=== PATIENT | male | born 1965 | race Caucasian/White ===

== ENCOUNTER 2022-01-08 11:02 | Outpatient (CLI) | payer MEDICARE, MEDICAID, SELFPAY ==
--- NOTE | 2022-01-08 10:30 | DI.RAD_ITS ---
Exam(s) XR HIP RT COMPLETE AP PELVIS EXAM: XR HIP RT COMPLETE AP PELVIS CLINICAL HISTORY: eval R hip OA. TECHNIQUE: 2D digital imaging was performed of the right hip. Two images were obtained. AP pelvis a nd lateral right hip views were obtained. COMPARISON: No previous for comparison. FINDINGS: BONES: No acute fracture is present. No bony destructive lesion is seen. JOINTS: There are marked degenerative changes of the right hip with joint space narrowing subchondral cyst/sclerosis and periarticular spurring. The left hip is well maintained. SOFT TISSUE: Normal. IMPRESSION: Marked osteoarthritis of the right hip. DATA REPOSITORY: RADIATION DOSE DELIVERED:
== END 2022-01-08 11:03 | disposition home or self-care (01) ==
LOC: DIORS 11:03
PROVIDERS: PCP Family Medicine; Referring Provider Family Medicine; Visit Provider Student in an Organized Health Care Education/Training Program
DX: M16.11 Unilateral primary osteoarthritis, right hip (principal); M23.41 Loose body in knee, right knee; L97.518 Non-pressure chronic ulcer of other part of right foot with other specified severity; E66.01 Morbid (severe) obesity due to excess calories; I10 Essential (primary) hypertension; F17.210 Nicotine dependence, cigarettes, uncomplicated
CPT/HCPCS: 99203; 73502

== ENCOUNTER 2022-02-15 15:56 | Outpatient (CLI) | payer MEDICARE, MEDICAID, SELFPAY ==
--- NOTE | 2022-02-15 15:30 | DI.RAD_ITS ---
Exam(s) XR PELVIS AP EXAM: XR PELVIS AP CLINICAL HISTORY: planning ofr JC. TECHNIQUE: 2D digital imaging was performed.Two images were obtained. COMPARISON: No exams were available for comparison FINDINGS: BONES: No acute fracture is present. No bony destructive lesion is seen. JOINTS: No dislocation present. Marked degenerative changes are seen in the right hip with loss of th e superior joint space, subchondral sclerosis, periarticular spurring and osteophytes. The left hip is well maintained. SOFT TISSUE: Normal. IMPRESSION: Marked degenerative changes of the right hip. DATA REPOSITORY: RADIATION DOSE DELIVERED:
== END 2022-02-15 15:57 | disposition home or self-care (01) ==
LOC: DIORS 15:57
PROVIDERS: PCP Family Medicine; Referring Provider Family Medicine; Visit Provider Student in an Organized Health Care Education/Training Program
DX: M16.11 Unilateral primary osteoarthritis, right hip (principal); M17.11 Unilateral primary osteoarthritis, right knee; E66.9 Obesity, unspecified; F17.210 Nicotine dependence, cigarettes, uncomplicated
CPT/HCPCS: 20610; 72170; J1040

== ENCOUNTER 2022-03-23 02:50 | Outpatient (CLI) | payer MEDICARE, MEDICAID, SELFPAY ==
[2022-03-23 14:04] LABS: HCT 38.1 % (40.0-50.0); HGB 13.2 g/dL (13.5-17.5); MCH 31.1 pg (27.0-33.0); MCHC 34.6 % (32.0-36.0); MCV 90 fL (80-95); MPV 9.5 fL (8.0-11.0); Platelet Count 273 10^3/uL (130-400); RBC 4.24 10^6/uL (4.36-5.78); WBC 8.65 10^3/uL (4.4-10.8)
[2022-03-23 14:40] LABS: Anion Gap 7.7 mmol/L (3-11); BUN 13 mg/dL (7-18); CO2 28.3 mmol/L (21.0-32.0); CREATININE 0.8 mg/dL (0.70-1.30); Calcium 9.3 mg/dL (8.5-10.1); Chloride 99 mmol/L (98-107); Estimated GFR 103.87 (mL/min/1.73m2); Glucose 110 mg/dL (74-106); Potassium 4.1 mmol/L (3.5-5.1); Sodium 135 mmol/L (136-145)
== END 2022-03-23 02:51 | disposition home or self-care (01) ==
LOC: LBO 02:50
PROVIDERS: PCP Family Medicine; Visit Provider Student in an Organized Health Care Education/Training Program
DX: M25.551 Pain in right hip (principal); M16.11 Unilateral primary osteoarthritis, right hip; Z01.818 Encounter for other preprocedural examination; Z01.812 Encounter for preprocedural laboratory examination
CPT/HCPCS: 36415; 80048; 85027; 99214

== ENCOUNTER 2022-03-30 12:15 | Inpatient (IN) | payer MEDICARE, MEDICAID, SELFPAY ==
[2022-03-30] VITALS (12 sets, daily range): BP systolic 104–138; BP diastolic 68–95; PULSE 66–85; RESP 12–20; TEMP 36.3–36.9; O2SAT 95–97; BMI 50.3
[2022-03-30 12:39] LABS: Source Nasal/Nares
--- NOTE | 2022-03-30 12:47 | W.ANESPRE ---
General Info Date of Service Date Performed: 03/30/22 Height: 5 ft 6 in Weight: 141.3 kg Body Mass Index (BMI): 50.3 Surgical Procedure: Operation Date: 03/30/22 15:50 Proposed Procedure Side Surgeon p Hip Total Hip Anterior ACTIS Right Naseem Caba MD Meds Allergies and Home Medications Allergies Allergy/AdvReac Type Severity Reaction Status Date / Time acetaminophen [From Vicodin] Allergy Intermediate Verified 03/30/22 13:04 hydrocodone [From Vicodin] Allergy Intermediate Verified 03/30/22 13:04 naproxen AdvReac Verified 03/30/22 13:04 Home Medication Medication Instructions Recorded acetaminophen 500 mg tablet 500 mg PO Q6H PRN 11/17/21 diclofenac sodium 1 % topical gel 4 g topical QID 11/17/21 docusate calcium 240 mg capsule 240 mg PO DAILY 11/17/21 lisinopril 10 mg tablet 10 mg PO DAILY 03/23/22 meloxicam 15 mg tablet 15 mg PO DAILY 03/23/22 Current Visit Medications: Current Medications Generic Name Dose Route Start Last Admin Trade Name Freq PRN Reason Stop Dose Admin Acetaminophen 1,000 mg 03/30/22 06:00 Acetaminophen 500 Mg Tab PO 03/30/22 16:00 PREOP ROHITH Celecoxib 400 mg 03/30/22 06:00 Celecoxib 200 Mg Cap PO 03/30/22 16:00 PREOP ROHITH Tranexamic Acid 1,000 mg/ 60 mls @ 360 mls/hr 03/30/22 06:00 Sodium Chloride IV 03/30/22 16:00 PREOP ROHITH Ringer's Solution 1,000 mls @ 80 mls/hr 03/30/22 06:00 IV 03/30/22 23:59 INFUSION ROHITH Cefazolin Sodium 3,000 mg/ 100 mls @ 200 mls/hr 03/30/22 06:00 Sodium Chloride IVPB 03/30/22 16:00 PREOP [facility] IV Miscellaneous Supplies 1 each 03/30/22 06:00 Iv Access IV 03/30/22 23:59 DIRECTED ROHITH Sodium Chloride 0 ml 03/30/22 06:00 Normal Saline Flush 10 Ml Syr IV 03/30/22 23:59 PRN PRN Sodium Chloride 0 ml 03/30/22 06:00 Normal Saline 10 Ml Vial IJ 03/30/22 23:59 DIRECTED PRN Sterile Water 0 ml 03/30/22 06:00 Water,Injection,Sterile 10 Ml Vial IJ 03/30/22 23:59 DIRECTED PRN PFSH Active Problems Active Problems: Problem Status Onset Code Alcohol abuse F10.10 Osteoarthritis of right knee M17.11 Osteoarthritis of right hip M16.11 Hyperlipidemia E78.5 Opioid use disorder F11.90 Erectile dysfunction N52.9 Hypertension I10 Major depressive disorder F32.9 Housing instability, housed, homelessness in past 12 months Z59.812 Non-healing ulcer of right foot L97.519 Loose body in knee, right knee M23.41 Medical History Medical History Cellulitis 08/2019, 12/2019 Chronic pain COPD (chronic obstructive pulmonary disease) COVID DM (diabetes mellitus) Dx 01/21 Lumbosacral radiculitis Morbid obesity AIYANA (obstructive sleep apnea) 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 Surgical History Surgical History (Updated 03/30/22 @ 14:07 by Cinthya Haley) History of partial amputation of toe of right foot 03/17/20 History of surgery on lower extremity left ankle w/screws per patient Tobacco Smoking/Tobacco Use Status: Current-Occasional Tobacco Type: cigarettes Smokeless tobacco user: chewing tobacco Alcohol Alcohol Intake: current Alcohol intake frequency: 0-2 drinks per day Substance Use Substance use: Occasionally Substance use type: marijuana Vital Signs and Lab Results Lab Results Blood Type / Crossmatch: No Data to Display Complete Blood Count: White Blood Count 8.65 10^3/uL (4.4-10.8) 03/23/22 13:50 Red Blood Count 4.24 10^6/uL (4.36-5.78) L 03/23/22 13:50 Hemoglobin 13.2 g/dL (13.5-17.5) L 03/23/22 13:50 Hematocrit 38.1 % (40.0-50.0) L 03/23/22 13:50 Platelet Count 273 10^3/uL (130-400) 03/23/22 13:50 Complete Metabolic Panel: Sodium 135 mmol/L (136-145) L 03/23/22 13:50 Potassium 4.1 mmol/L (3.5-5.1) 03/23/22 13:50 Chloride 99 mmol/L (98-107) 03/23/22 13:50 Carbon Dioxide 28.3 mmol/L (21.0-32.0) 03/23/22 13:50 BUN 13 mg/dL (7-18) 03/23/22 13:50 Creatinine 0.8 mg/dL (0.70-1.30) 03/23/22 13:50 Est GFR (CKD-EPI 2020) 103.87 (mL/min/1.73m2) 03/23/22 13:50 Calcium 9.3 mg/dL (8.5-10.1) 03/23/22 13:50 Glucose 110 mg/dL (74-106) H 03/23/22 13:50 Liver Function Panel: No Data to Display Coagulation Panel: No Data to Display Cardiac Panel: No Data to Display Arterial Blood Gas: No Data to Display Venous Blood Gas: No Data to Display Pancreas Panel: No Data to Display Thyroid Panel: No Data to Display Infectious Disease: Coronavirus (COVID-19)(PCR) Negative (Negative) 03/30/22 12:30 Coronavirus 2019 Source Nasal/Nares 03/30/22 12:30 Blood Cultures: No Data to Display Toxicology Panel: No Data to Display Anesthesia Assessment and Plan Anesthesia History Personal History: No History of Anesthesia Complications Family History: Family History Unknown Exercise Tolerance Exercise Tolerance: Metabolic Equivalents>4 Cardiac & Pulmonary Exam Cardiac Exam: Normal S1/S2 Heart Sounds Pulmonary Exam: Clear Bilateral Breath Sounds Implantable Cardiac Device Does patient have a Pacemaker or an ICD?: No Airway Exam Known Difficult Airway: No Mallampati Class: 3 Mouth Opening: Normal (> 3cm) Thyromental Distance: Greater than 3 cm Facial Hair: Full Driscoll Neck Range of Motion: Full ROM Neck Circumference: Thick Teeth Condition: Generalized Poor Dentition ASA Classification ASA Score: ASA 3 Emergency Case?: No NPO Status NPO Status: NPO Clears >2 hours, Solids >8 hours Anesthesia Plan Resuscitation Status: Full Code Anesthesia Technique: Spinal Anesthesia Airway Planned: Natural Airway Monitors Used: Standard Monitors
[2022-03-30] MEDS: Lactated Ringers 1,000 ML 80 ML IV ×2 (13:10→18:49)
[2022-03-30 13:11] LABS: COVID-19 PCR Negative (Negative)
[2022-03-30] MEDS: Celecoxib 200 MG CAP 400 MG PO (13:25)
[2022-03-30] MEDS: Acetaminophen 500 MG TAB 1000 MG PO ×2 (13:25→20:26)
--- NOTE | 2022-03-30 13:30 | DI.RAD_ITS ---
Exam(s) XR HIP RT IN OR EXAM: XR HIP RT IN OR CLINICAL HISTORY: right total hip. TECHNIQUE: 2D digital imaging was performed. COMPARISON: No exams were available for comparison FINDINGS: Fluoroscopy provided during right hip arthroplasty. See procedure report for details. Cumulative dose 23.75mGy IMPRESSION: DATA REPOSITORY: RADIATION DOSE DELIVERED:
[2022-03-30] MEDS: ceFAZolin 3,000 MG in Normal Saline 100 ML 200 MG IVPB (14:33)
--- NOTE | 2022-03-30 18:18 | W.ANESPOSTOP ---
Postoperative Evaluation Date, Time and Location Date Performed: 03/30/22 Time Performed: 17:50 Patient Location: PACU Vital Signs Most Recent Imported Vital Signs: Most Recent Vital Signs Temp Pulse Resp BP Pulse Ox 36.5 C 74 17 114/88 95 03/30/22 17:50 03/30/22 17:50 03/30/22 17:50 03/30/22 17:50 03/30/22 17:50 Pain Score Most Recent Pain Score: Most Recent Pain Score Pain Level 0 03/30/22 17:50 Assessment Mental Status: Awake (Alert & Oriented to Patient Baseline) Airway and Respiratory Function: Patent airway with normal (patient baseline) respiratory exam Cardiovascular Function: Hemodynamically Stable Hydration Status: Adequately Hydrated Nausea & Vomiting: No Nausea or Vomiting Pain: Pt. Denies Any Pain Peripheral Nerve Block: Patient did not receive a nerve block
[2022-03-30] MEDS: oxyCODONE 5 MG TAB PO ×2 (18:59→23:17)
[2022-03-30] MEDS: Celecoxib 200 MG CAP PO (20:26)
[2022-03-30] MEDS: ceFAZolin 1 GM/50 ML BAG IVPB (20:27)
[2022-03-30] MEDS: Aspirin E.C. 81 MG TABEC PO (20:27)
--- NOTE | 2022-03-30 20:56 | ROE_ITS ---
Date of service: 03/30/22 Time of Service: 17:00 Operative Note Operative Note DATE OF PROCEDURE: 03/30/22 PRE-OP DIAGNOSIS: Right Hip Avascular Necrosis POST-OP DIAGNOSIS: same PROCEDURE: Right Anterior Total Hip Arthroplasty with Intraoperative Navigation - increased difficulty given super morbid obesity SURGEON: Naseem Caba NUCLEAR PHYSICIAN: Cindi Price ANESTHESIA TYPE: Spinal Refer to Anesthesia Record ESTIMATED BLOOD LOSS: 250 PATHOLOGY: none sent TOURNIQUET TIME: 0 COMPLICATIONS: None Patient was transported to: PACU Patient's condition: stable Implants: 1. Depuy [place] Acetabular Component, 54mm 2. Depuy Acetabular Liner, [id number] 3. Depuy Actis Standard Collared Femoral Stem, Size 3 4. Depuy Altrx Ceramic Femoral Head, Size 36+5mm Indications: I have seen Rosalio in clinic for symptoms of hip osteonecrosis, confirmed with radiographic findings. Rosalio has exhausted nonoperative methods and was having significant limitations in daily function and desired better function and less pain. I discussed the technical details of a hip replacement. I explained the risks of the procedure to include, but not limited to, bleeding, infection, pain, stiffness, fracture, damage to nerves and vessels, damage to muscles and tendons, loosening, instability, leg length inequality, need for repeat procedure, blood clot and cardiopulmonary demise. Despite these risks, Rosalio elected to proceed. Findings: There was significant flattening and deformity of the femoral head with acetabular wear and a large floor osteophyte. Procedure Description: Rosalio was greeted in the preoperative holding area where the correct side was identified and marked. The consent was reviewed with the patient and signed. The history and physical was updated. All questions were answered. He was taken back to the operating room. A spinal anesthestic was then administered. The feet were wrapped with cast padding and Coban and then placed into the boot liners and then into the boots. Care was taken to protect the skin and make sure the heels were fully down and the boots were stable. The patient was then positioned onto the HANA table. Both legs were held in a neutral position. SCDs were applied. The patient was then slid down onto a peroneal post. Prophylactic antibiotics in the form of Cefazolin were administered. 1g of Tranxemic Acid was given intravenously within 30 minutes of incision. The large pannus was taped over and secured although given its size this twisted the patient to the left. The right leg was then prepped with Chloraprep and draped in a standard fashion. A second prep with Chloraprep was performed prior to placement of a shower-curtain type drape with Iodine impregnated skin protection. A timeout to confirm correct identity, side and site, procedure, allergies, anesthesia, and medical concerns was performed. An obliquely oriented incision was made starting lateral to the ASIS and running distal over the Tensor Fascia Karla (TFL) muscle belly toward the fibular head, approximately 10cm. The skin and soft tissue was dissected sharply, through Sarina?s fascia, and to the fascia of the TFL. With the fascia and superior border of the IT band identified, the fascia was incised with a new knife just above any perforators from the IT band. The TFL muscle belly was bluntly dissected away from the fascia and moved laterally. The fat between TFL and rectus was identified to ensure the dissection was not within the TFL. Blunt dissection created space between abductors and the capsule and retractor was placed over the lateral femoral neck. The fibers of the rectus femoris tendon were identified and these were freed from the anterior capsule. A second cobra retractor was placed around the medial femoral neck. The TFL was further retracted laterally to show the deep fascia. Careful dissection through this layer identified three main crossing vessels of the lateral femoral circumflex. These were cauterized in multiple locations and then cut without any noticeable bleeding. The TFL was further released bluntly from the deep fascia to expose anterior hip capsule and fat The Alfonso orthopaedic retractor was then placed beneath the TFL and against sartorius and medial soft tissues to protect and retract the soft tissues. A T-capsulotomy was then performed starting at the superior lateral acetabulum and moving distally to the intertrochanteric ridge. These capsular flaps were tagged with a No. 1 Ethibond and elevated from within. The capsular flaps were released to the shoulder of the lateral neck and to the lesser trochanter to give excellent visualization of the proximal femur. There was notable synovitis in the hip. Access into the hip was challenging given the amount of soft tissue and adipose around the hip. A neck osteotomy was performed using an oscillating saw based on preoperative templates. This cut started in the shoulder and of the lateral neck and exited medially. The saw was at all times directed medially to avoid injury to the greater trochanter. Gross traction was applied to the leg and the osteotomy opened. The femoral head was removed with a corkscrew, making sure to protect the TFL on its exit. There was deformity and flattening of the femoral head. Traction was released after head removal. This was measured on the back table to determine the starting reamer size. Portions of the rectus obscuring visualization were minimally elevated off the superior acetabulum. An anterior retractor was placed over the anterior wall between capsule and labrum and attached to the Gripper retraction system. The femur was rotated to 90 degrees and medial capsule was fully released until the lesser trochanter was palpable and visible; the femur was returned to 30 degrees. A posterior retractor was placed similarly between capsule and labrum. This provided excellent visualization. The contents of the cotyloid fossa were removed with electrocautery and the labrum was removed with a knife. There was a notable floor osteophyte. Acetabular reaming began with a 48mm reamer. This first reaming was directed anterior to posterior and medial to get down to the true floor. This was inspected and reamed until the true floor was reached. The anterior retractor was then released and entry and exit was provided by traction on the capsular flaps. I then reamed sequentially up to a 54mm reamer where good fit was obtained. The larger reamers were oriented based on anatomical reference of the anterior and lateral dominguez to ensure proper abduction and anteversion. Positioning and size was confirmed with the fluoroscopy. A 54mm Depuy [place] acetabular component was selected. The deep tissues were irrigated. The acetabular component was then impacted in a position of about 40-45 degrees of abduction and 15-20 degrees of anteversion, using the patient?s anatomy as the ultimate landmark. Fluoroscopy was used to confirm this. There was excellent electrical drafter of the acetabular component and the inserting handle was removed. The acetabular liner, Depuy [id number] polyethylene liner, was inserted and lined up with the tines of the acetabular component. There was no soft tissue interposition. The liner was then impacted into position and confirmed to be well-seated. A portion of the melanie-articular cocktail was then injected around the acetabulum into the capsule and periosteum. This cocktail consisted of 123mg of Ropivacaine, 0.25mg of Epinephrine, 0.04mg of Clonidine, and 15mg of Ketorolac, diluted to 50cc. The leg was rotated to 120 degrees. Any remaining medial capsule was released until the lesser trochanter was easily palpable. A retractor was placed medially. Getting this capsule released was very challenging due to the morbid obsity and superfluous adiposity. The lateral capsule was further released into the shoulder to allow access to the greater trochanter. A Ramon retractor was placed over the greater trochanter which allowed the trochanter to flip in front of the capsule for excellent exposure. The leg was brought down into maximal extension and 20 degrees of adduction while ensuring there was no impingement on the acetabulum. Any remnant capsule within the trochanter was released. Piriformis and obturator externis were identified and protected. There was excellent access to the proximal femur. The lateral neck remnant was removed with a rongeur. A blunt canal probe was used to identify the canal and trajectory for later broaching. A box osteotome initiated the broach course. A small curved rasp and a curved curette were used to work laterally. Broaching then began with a size 0 Actis broach. This was inserted manually around the trochanter and into the canal before mallet blows. The broach was seated to a few millimeters below the cut level based on the neck cut and the preoperative template. Sequential broaching was continued with the Chooosse pneumatic broaching device until a tight fit was obtained with good rotational control of the femur. A trial standard neck was inserted along with a +5 trial head. The leg was brought out of extension and adduction and then reduced with traction and internal rotation. The leg was stable anteriorly in a position of 30 degrees of extension and 90 degrees of external rotation. Fluoroscopy was used to ensure there was no fracture and the stem was seated well. Leg lengths were checked with an AP pelvis and pelvic reference points. [facility] navigation system was used to confirm appropriate positioning and leg length and offset. Interpreting this was challenging given the habitus. Velus indicated appropriate leg length as planned but x-rays were difficult to get clarity. Alignment jacobo was also used which appeared close although the femoral broach was sitting up. Once content with the desired offset and leg lengths, the leg was brought back into extension, external rotation and adduction. The periosteum and surrounding tissue was injected with remaining portion of the melanie-articular cocktail. The proximal femur was irrigated as well as the deep tissues. The Depuy Actis standard collared stem, size 3, was then manually inserted into the proximal femur making sure to control rotation. It was then malleted into position with light blows, giving breaks to allow bone expansion and decrease risk of fracture. The selected Depuy Altrx Ceramic Head, size 36+5mm, was then placed onto the clean and dry trunnion and secured with impaction onto the tapered fit. The leg was brought back out of extension and adduction and reduced with traction and internal rotation. Stability was confirmed with no shuck at 90 degrees of external rotation and 30 degrees of extension. No impingement through range of motion arc. Final x-ray images were obtained with fluoroscopy to confirm adequate positioning and no intraoperative fracture. COMPLICATION The deep tissues were thoroughly irrigated with Irrisept chlorheadin solution. This was allowed to sit in the wound for 3 minutes before being thoroughly irrigated out with normal saline. The capsule was then reapproximated with the previously placed Ethibond sutures. The TFL fascia was finally closed with a No. 2 Stratafix, barbed suture. Deep tissues were then reapproximated with 0 Vicryl and a running 2-0 Vicryl. The skin was closed with a running 4-0 Monocryl in a subcuticular fashion. This was reinforced with skin glue. A Mepilex silver dressing was applied. At the end of the case, all counts were correct. NAME was transferred to the hospital bed without difficulty and suffering no apparent complication. Rosalio has a good prognosis. Physical therapy will start today and without restrictions, weight-bearing as tolerated. Aspirin 81mg BID will be used for DVT prophylaxis.
[2022-03-31 03:15] VITALS: BP 120/78; PULSE 66; RESP 17; TEMP 36.7; O2SAT 97
[2022-03-31] MEDS: ceFAZolin 1 GM/50 ML BAG IVPB ×2 (03:53→12:04)
[2022-03-31 06:52] LABS: HCT 35.3 % (40.0-50.0); HGB 12.1 g/dL (13.5-17.5); MCH 31.5 pg (27.0-33.0); MCHC 34.3 % (32.0-36.0); MCV 92 fL (80-95); MPV 9.8 fL (8.0-11.0); Platelet Count 229 10^3/uL (130-400); RBC 3.84 10^6/uL (4.36-5.78); RDW 13.2 % (11.8-14.1); RDW-SD 44.1 fL; WBC 11.66 10^3/uL (4.4-10.8)
[2022-03-31 07:08] LABS: BUN 24 mg/dL (7-18); CREATININE 1.2 mg/dL (0.70-1.30); Calcium 8.3 mg/dL (8.5-10.1); Chloride 99 mmol/L (98-107); Estimated GFR 70.98 (mL/min/1.73m2); Glucose 248 mg/dL (74-106); Potassium 4.4 mmol/L (3.5-5.1); Sodium 133 mmol/L (136-145)
[2022-03-31 08:29] VITALS: BP 122/87; PULSE 90; RESP 14; TEMP 37.3; O2SAT 95
[2022-03-31] MEDS: Celecoxib 200 MG CAP PO (08:41)
[2022-03-31] MEDS: Lisinopril 10 MG TAB PO (08:41)
[2022-03-31] MEDS: Acetaminophen 500 MG TAB 1000 MG PO ×3 (08:41→21:40)
[2022-03-31] MEDS: Pantoprazole 40 MG TABCR PO (08:41)
[2022-03-31] MEDS: Aspirin E.C. 81 MG TABEC PO ×2 (08:42→21:39)
[2022-03-31] MEDS: oxyCODONE 5 MG TAB PO ×3 (08:42→21:38)
[2022-03-31] MEDS: Docusate Sodium 100 MG CAP PO (08:43)
[2022-03-31] MEDS: Normal Saline Flush 10 ML SYR IV (08:43)
--- NOTE | 2022-03-31 09:25 | PT.INIE ---
Date of service: 03/31/22 Time of Service: 09:25 PT Notes Physical Therapy Inpatient Initial Evaluation Date: 08/29/2021 Referring Doctor: POLLY Hidalgo PT Orders: PT CONSULT: S/P Ortho Surgery Precautions: Fall. Standard. WBAT on right LE with AD. Patient Profile/Admitting Diagnosis: Rosalio is a 57-year-old male with osteoarthritis of the right hip with avascular necrosis and is status post right anterior total hip arthroplasty on postoperative day 1. PMHX: All Active problems Loose body in knee, right knee (Acute) Non-healing ulcer of right foot (Acute) Housing instability, housed, homelessness in past 12 months (Acute) Major depressive disorder (Chronic) Hypertension (Chronic) Erectile dysfunction (Acute) Opioid use disorder (Acute) Hyperlipidemia (Acute) Osteoarthritis of right hip (Acute) Osteoarthritis of right knee (Acute) Alcohol abuse (Chronic) Medical History? Osteomyelitis of second toe of right foot Social History/Home Situation: Has lived with his brother for the past 6 months but patient states that he has had a fall out with his brother and does not have any place to go to from here. He is independent with all mobility ADLs prior to surgery. Equipment Owned/DME: wheelchair that a family memeber used previously, 4WW Subjective: Reports considerable pain in the R hip with movement but was agreeable to getting out of bed. States that he has walks with his right foot outward even before surgery and has used orthosis previously. Denies headache, chest pain, and dizziness throughout session. Objective: General Observation: Supine in bed, started self-care ADLs with RADIO PROGRAM DIRECTOR Teto. TEDS to B legs. Cold pack to R hip. IV access to R UE. Mental Status: Alert and oriented as to person, place, time, and purpose. Able to pay attention, focus, and respond appropriately. Pain: 8-9/10 in with movement that seemed to have subsided with ambulation down to about 6-7/10 Vital Signs: WNL as closely monitored by nursing staff ROM: Right Lower Extremity: Hip flexion last 25% of AROM limited due to abdominal pannus and discomfort. Hip abduction WFL. Knee flexion WFL. Ankle dorsiflexion to neutral. Ankle plantarflexion WFL. Foot everted about 20 degrees from nuetral. Left Lower Extremity: Hip flexion last 25% of AROM limited due to abdominal pannus. Hip abduction WFL. Knee flexion WFL. Ankle dorsiflexion WFL. Ankle plantarflexion WFL. Strength: Right Lower Extremity: Hip flexors 3-/5. Hip abductors 4-/5. Knee flexors 4/5. Knee extensors 4/5. Ankle dorsiflexors 3-/5. Ankle plantarflexors 3-/5. Ankle invertors 3-/5. Left Lower Extremity: Hip flexors 4/5. Hip abductors 4/5. Knee flexors 4/5. Knee extensors 4/5. Ankle dorsiflexors 4/5. Ankle plantarflexors 4/5. Bed Mobility/Transfers: Supine to sit stand by assist Sit to stand standby assist Stand to sit standby assist Bed to reclining chair standby assist with FWW Gait: Instructed patient with level surface ambulation of 50 feet + 50 feet feet requiring stand by assist. Nithya decreased. Step height asymmetrical. Step length asymmetrical. Gait antalgic. 1 standing rest needed due to fatigue. Cues provided to ensure R foot does not hit the R hindleg of walker with each advancement. Balance: Static Sitting: Normal Dynamic Sitting: Normal Static Standing: Fair Dynamic Standing: Fair Special Tests: Mobility Limitations Standardized Measure [facility] AM-PAC 6 clicks Basic Mobility Inpatient Short Form: Raw Score: 23 CMS Score: 11% deficit Informed Consent/Education: Patient was instructed in purpose of PT consult and plan of care. Agreeable to proceed with established PT POC to achieve personal goals. Assessment: Has no home to go to. Patient requires the use of a front-wheeled walker to maximize independence and reduce fall risk for all mobility ADL performance. Patient will highly benefit from use of straight cane in order to increase mobility, increase stability, maximize activity tolerance, and reduce overall fall risk at discharge destination. Limits ambulation distance and safety of mobility performance and will highly benefit from premedication. Patient presents with clinical signs and symptoms consistent with current/admitting diagnoses that have resulted to mobility limitations, gait instability, generalized weakness, and overall ADL decline as demonstrated by the following impairment level findings: 1. Decreased strength to R hip major muscle groups 2. Impaired sitting/standing balance 3. Impaired activity tolerance 4. Limitation of joint range of motion in R hip 5. Pain with movement 6. MObility deficit score of 11% on the [facility] Impairments are contributing to the following functional limitations: 1. Decline in bed mobility skills 2. Decline in transfer skills 3. Difficulty with ambulation without assistive device and physical assistance 4. Increased completion time for mobility ADL performance 5. Increased risk for falls 6. Difficulty with managing steps alone safely Patient is assessed as a 59212 moderate complexity based on the following: History: 57-year-old male with past medical history as indicated above Examination: Demonstrable impairment in strength, balance, and mobility level with underlying impairments and functional limitations as exhibited above as well as deficit score of 11% utilizing the [facility] Mobility Inpatient Short Form Presentation: Evolving Decision Makin moderate complexity Goals: Goals X1 week 1. Supine-Sit independent 2. Sit-Supine independent 3. Sit-Stand independent 4. Stand-Sit independent with FWW 5. Bed-Chair independent with FWW 6. Chair-Bed independent with FWW 7. Independent gait on level surface with use of FWW for at least 300 feet without report of pain nor dyspnea 8. Independent stair negotiation while holding onto B rails for at least 5 steps without report of pain nor dyspnea 9. Independent with home exercise program 10. Good static and dynamic standing balance/tolerance Plan of Care/Treatment Plan: 1-2x/day, 7 days/week x 1 week. Plan of care has been reviewed with the HIGHWAY LANDSCAPE ARCHITECT providing the service under Physical Therapy direction. Initiate Physical Therapy intervention for pain management as needed, strengthening, bed mobility, transfers, gait, stairs, balance training, and use of assistive device. DISCHARGE RECOMMENDATIONS: [] Home with no services [] [] Home with services [specify] [X] ?Home? with outpatient PT. Home when medically cleared by orthopedic surgeon will benefit from outpatient PT services in order to maximize functional mobility outcomes and facilitate return to independent community ambulation without an assistive device. [] SNF for continued rehabilitation [] [] Senior Living Care [] [] SNF versus LTC based on ability to participate and progress [] TREATMENT CODE/TIME: 75466 x 20 minutes, 27396 x 17 minutes beginning at 9:25 AM. Thank you for the opportunity to participate in the care of this patient. Juanis Vierya PT, DPT, CLT [facility], [place]
--- NOTE | 2022-03-31 09:51 | W.PM.PROGNOT ---
Date of Service Date of service: 03/31/22 Time of Service: 09:51 Assessment and Plan Assessment and plan (1) Avascular necrosis of bone of right hip: Status: Acute Assessment and plan: Rosalio is a 57-year-old status post right hip replacement. Having some pain which is not surprising given the difficulty and complexity of his hip replacement. However, he seems to be doing well. We will work on mobilization with physical therapy today with anticipation of discharge to home in the next 1 to 2 days. Aspirin 81 mg for DVT prophylaxis. Oxycodone for pain control in addition to ketorolac and acetaminophen. Subjective Subjective Interval history since last seen: Rosalio is having pain in his right hip and leg. The medications are helping but still having pain. The pain is going down the leg towards the knee within the knee as well. He reports sensitivity with the muscles. No stu numbness or tingling down the leg. Exam Narrative Exam Narrative: Sitting up in the hospital bed. No acute distress. Alert and orient x3. Evaluation the right leg shows some ecchymosis and swelling about the thigh and the right hip. Dressings clean dry and intact. Intact sensation of the femoral static nerve distributions. He is able to actively flex and extend the toes as well as the ankle. When relaxed, no significant pain with internal and external rotation of the right hip. Objective Last Vital Signs Temp 37.3 C 03/31/22 08:29 Pulse 90 03/31/22 08:29 Resp 14 03/31/22 08:29 BP 122/87 03/31/22 08:29 Pulse Ox 95 03/31/22 08:29 Laboratory Results - last 24 hr 03/30/22 03/31/22 03/31/22 12:30 06:31 06:31 WBC 11.66 H RBC 3.84 L Hgb 12.1 L Hct 35.3 L MCV 92 MCH 31.5 MCHC 34.3 RDW 13.2 Plt Count 229 MPV 9.8 Sodium 133 L Potassium 4.4 Chloride 99 Carbon Dioxide 26.0 Anion Gap 8.0 BUN 24 H Creatinine 1.2 Est GFR (CKD-EPI 2020) 70.98 Glucose 248 H Calcium 8.3 L COVID-19 Source Nasal/Nares SARS-CoV-2 (PCR) Negative
[2022-03-31] MEDS: Ketorolac 15 MG/ML VIAL IVP ×3 (10:07→23:11)
[2022-03-31] MEDS: Normal Saline Flush 10 ML SYR (10:08)
[2022-03-31] MEDS: Refresh PLUS Eye Drops 0.4ml 1 EACH OU (12:03)
[2022-03-31] MEDS: Normal Saline Flush 10 ML SYR IVP ×5 (12:04→23:16)
[2022-03-31] MEDS: Normal Saline 500 ML 100 ML IV (12:04)
[2022-03-31 12:36] VITALS: BP 112/75; PULSE 83; RESP 16; TEMP 37.3; O2SAT 95
--- NOTE | 2022-03-31 15:22 | PT.INTREAT ---
Date of service: 03/31/22 Time of Service: 13:14 PT Notes Visit Reasons: R THR Inpatient Physical Therapy Treatment Note [facility] Date: 03/31/2022 PRECAUTIONS: Activity as tolerated, WBAT R SUBJECTIVE: Rosalio is pleasant and agreeable to participating in PT. He reports that he is having pain in his R knee, even at rest. He also reports that he is and has been working with community supports to find housing, as he currently resides at his brother's home. OBJECTIVE: PAIN: Patient c/o pain in R hip and R knee. He also reports a tightness pain in R lateral ankle with ther ex BED MOBILITY/TRANSFERS Sit-supine: Min A of R LE Sit-stand: S Stand-sit: S GAIT Assistive Device: FWW Weight bearing: WBAT R Assist: SBA Distance: 40' x2 Deviation: Slow pacing, standing rest x1, c/o dizziness, c/o R thigh, hip and knee pain THEREX: Patient was instructed in LE strengthening and stabilization program, completed in a long-sitting position, to include: ankle pumps, quad sets, glute sets, hip flexion and hip abduction. ASSESSMENT: Patient tolerated session with complaint of R hip, knee and thigh pain, increasing with gait training and ther ex. He tolerates a progression in gait distance, although requires standing rest due to increased fatigue and pain. PLAN: Continue with gait training and LE strengthening for improved mobility and activity tolerance. TREATMENT CODE/TIME: 30 minutes; 39425, 67068 (13:14)
[2022-03-31 15:30] VITALS: BP 109/67; PULSE 91; RESP 18; TEMP 37.1; O2SAT 95
[2022-03-31] MEDS: Nicotine 21 MG/24 HR PATCH TD (15:51)
[2022-03-31 19:51] VITALS: BP 106/72; PULSE 78; RESP 18; TEMP 37.1; O2SAT 93
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
[2022-03-31 22:59] VITALS: BP 135/80; PULSE 95; RESP 20; TEMP 37.7; O2SAT 94
[2022-04-01] MEDS: oxyCODONE 5 MG TAB PO ×2 (01:26→06:33)
[2022-04-01] MEDS: Polyethylene Glycol 3350 17 GM PACKET PO (01:28)
[2022-04-01 03:59] VITALS: BP 119/81; PULSE 86; RESP 18; TEMP 36.6; O2SAT 98
[2022-04-01] MEDS: Ketorolac 15 MG/ML VIAL IVP ×2 (04:07→10:10)
[2022-04-01] MEDS: Refresh PLUS Eye Drops 0.4ml 1 EACH OU (04:24)
--- NOTE | 2022-04-01 07:40 | DSE_ITS ---
Date of service: 04/01/22 Time of Service: 07:40 DS: Diagnosis Discharge Diagnosis (1) Avascular necrosis of bone of right hip: Status: Acute Discharge Plan Disposition Patient Disposition: Home W/Home Health Services Condition: Improving Discharge Details Reason For Visit: R THR Admit Date/Time: 03/30/22 12:15 Admit Provider: Naseem Caba Attending Provider: Naseem Caba Primary Care Provider: Anthony Soto [facility] Course Hospital Course: Patient was admitted to the medical/surgical floor following the procedure. The surgery was tolerated well without any notable medical, surgical, or anesthetic complications. Mobilization began postoperatively. [He][She] was voiding spontaneously. Vitals were stable. Physical therapy worked with the patient and was cleared for discharge home. No acute medical issues. Pain was controlled on oral regimen. Home Meds and New Rx's Prescriptions: New acetaminophen 500 mg tablet 1,000 mg PO Q8H PRN (Reason: pain) Qty: 90 3RF aspirin 81 mg tablet,delayed release (DR/EC) 81 mg PO BID Qty: 60 0RF oxycodone 15 mg tablet 15 mg PO Q4H PRNQty: 24 0RF nicotine 21 mg/24 hr patch 24 hour 1 patch transdermal DAILY Qty: 28 6RF Continued lisinopril 10 mg tablet 10 mg PO DAILY docusate calcium 240 mg capsule 240 mg PO DAILY diclofenac sodium 1 % gel 4 g topical QID Rx Instructions: apply to single knee, ankle, foot; for foot includes sole/toes/top of foot meloxicam 15 mg tablet 15 mg PO DAILY Qty: 30 2RF Discontinued acetaminophen 500 mg tablet 500 mg PO Q6H PRN Discharge Instructions Additional Instructions: Total Hip Discharge Instructions Activity: The most important activity is to walk. You should try to take short walks a few times a day. You have no restrictions on movement or positioning, but do not try to force what you do. You will find some stiffness and weakness with hip flexion (lifting your knee). Do not try to strengthen this too early, continue to practice walking and stairs and this will come. You may apply heat to the muscles of the thigh and buttock as well as direct soft tissue massage. - Outpatient physical therapy can be helpful to help return you to a normal gait and improve your flexibility and strength. We will start with home health physical therapy until you are mobile enough to leave your home. - You should wear the COLE hose on both legs for 2 weeks but you may remove them as needed. Dressing: Keep the surgical dressing in place for at least one week although you may leave it in place for 2 weeks. After the first week it may be removed and replace with light gauze and tape or nothing. It may get wet after 3 days but avoid soaking the dressing. If it gets wet, just lightly pat dry. It is important to always keep some gauze between skin folds, especially when you are sitting. Spend some time with the wound exposed when you are lying flat as the incision does wrinkle onto itself. Medications: - You should take Tylenol and an anti-inflammatory Meloxicam as your primary pain control medications. If the Celebrex is too expensive or not covered, please call the office for another alternative (Advil/Ibuprofen or Naproxen/Aleve). - You have been prescribed a stronger pain medication Oxycodone for breakthrough pain, take as needed as prescribed. - You will be taking Aspirin 81mg twice a day for DVT prevention unless instructed otherwise. - If you have constipation you should take Colace or Miralax (both [id number]). It takes most people 3-4 days to have a bowel movement. Follow-up: 2 weeks If you have any acute concerns or questions, please do not hesitate to contact the office at [phone]. You may contact Dr. Caba with any questions after hours through the hospital at [phone] or on his cell phone at [phone]. 1. Encounter Date and Reason I certify that Rosalio Draper was seen by Naseem Caba MD on 04/01/22 and that I had a [id number] encounter with this patient that meets the physician face to face encounter requirements. 2. Clinical Findings Supporting Skilled Need and Homebound Status I certify that home health services are medically necessary, include either intermittent long term and/or physical/speech therapy, and that this patient is homebound in that absences from the home require considerable and taxing effort and are infrequent or of short duration, or are attributable to the need to receive medical care. [X] (a) Attached documentation from encounter provides clinical findings supporting skilled need and homebound status (including what assistance patient requires to leave the home). The encounter with the patient was in whole, or in part, for the following medical condition, which is the primary reason for home health care: R THR Longterm: Physical Therapy: Rosalio will benefit from physical therapy to address his weakness and stiffness resulting from avascular necrosis and recent hip replacement surgery of the right hip. He had an anterior hip replacement and may bear weight as tolerated without restriction. Speech Therapy: Homebound: Rosalio is unable to leave his home unassisted due to gait dysfunction and weakness. 3. Certification and Authentication I certify that I composed the above information based on my clinical judgement relating to this patient's medical condition and, if applicable, clinical findings communicated to me by the NPP or inpatient physician who performed the Home Health Referral. All further orders will be obtained through Dr. Caba Referrals: Naseem Caba MD [ [facility] STAFF PHYSICIAN] - Activity:: Activity as Tolerated Equipment/Supplies:: Walker Diet:: As Tolerated Discharge Orders Discharge Orders: Discharge Order (Routine); Ordered 04/01/22 Ordered By: Naseem Caba DS: Summary Time Spent with Patient providing and/or coordinating discharge services: Less than 30 minutes Status at Discharge Functional status at discharge: uses cane/walker Overall status at discharge: patient is progressing back to baseline Mental Status: mental status grossly normal Speech and Movement: speech and movement normal Mood: congruent mood Affect: normal affect Exam Narrative Exam Narrative: Sitting up in the bed. NAD. AAOx3. RLE hip dressing c/d/i. Thigh with some swelling and ecchymosis. Thigh is soft. Some pain with palpation of the thigh muscles, less so about the knee. No significant pain with ER/IR of the hip. Evaluation of the left shoulder shows good range of motion with some pain over the subacromial space. No significant weakness of abduction or forward flexion. +Neer impingement test. Psych Mental Status: mental status grossly normal Speech and Movement: speech and movement normal Mood: congruent mood Affect: normal affect DS: Data Vitals/I&O Vitals and I&O: Vital Signs Temperature 36.6 C 04/01/22 03:59 Temperature Source Tympanic 04/01/22 03:59 Pulse 86 04/01/22 03:59 Pulse Rhythm Regular 04/01/22 06:13 Respiratory Rate 18 04/01/22 03:59 Respiratory Effort 04/01/22 06:13 Respiratory Depth Normal 04/01/22 06:13 Respiratory Pattern Normal 04/01/22 06:13 Blood Pressure 119/81 04/01/22 03:59 Pulse Oximetry 98 04/01/22 03:59 Respiratory End-tidal CO2 36 03/30/22 17:50 Oxygen Delivery Method Room Air 04/01/22 03:59 Oxygen Flow Rate 0 04/01/22 03:59 Pain Level 10 04/01/22 06:33 Intake & Output 03/31/22 03/31/22 04/01/22 11:59 23:59 11:59 Intake Total 2020 / 2568.334 548.334 / 2568.334 Output Total 975 / 1675 700 / 1675 500 / 500 Balance 1045 / 893.334 -151.666 / 893.334 -500 / -500 Intake: IV 1060 / 1188.334 128.334 / 1188.334 Oral 960 / 1380 420 / 1380 Output: Urine 975 / 1675 700 / 1675 500 / 500 Other: Urine Color Yellow Yellow Yellow Urine Appearance Cloudy Clear Clear Urine Odor Normal None Normal Comment toilet insert Stool Size Smear Stool Characteristics Soft Brown Voiding Methods Urinal Urinal Toilet Data Completed and Pending Labs on day of discharge: Labs from last 24 hours 03/31/22 06:31 Hemoglobin A1c Pending [facility] All Active Problems Avascular necrosis of bone of right hip (Acute) Alcohol abuse (Chronic) Osteoarthritis of right knee (Acute) Osteoarthritis of right hip (Acute) Hyperlipidemia (Acute) Opioid use disorder (Acute) Erectile dysfunction (Acute) Hypertension (Chronic) Major depressive disorder (Chronic) Housing instability, housed, homelessness in past 12 months (Acute) Non-healing ulcer of right foot (Acute) Loose body in knee, right knee (Acute) Medical History Cellulitis 08/2019, 12/2019 Chronic pain COPD (chronic obstructive pulmonary disease) COVID DM (diabetes mellitus) Dx 01/21 Lumbosacral radiculitis Morbid obesity AIYANA (obstructive sleep apnea) Osteomyelitis of second toe of right foot Venous (peripheral) insufficiency Surgical History History of partial amputation of toe of right foot 03/17/20 History of surgery on lower extremity left ankle w/screws per patient Social History Smoking/Tobacco Use Status: Former Tobacco Use Quit Date: 08/30/21 Tobacco: How many years used: 35 Smokeless tobacco user: chewing tobacco Smoking risk assessment performed?: Yes Alcohol Intake: current Alcohol Intake frequency: holidays/special occasions only Alcohol type: beer Drug use: Occasionally Substance use type: marijuana Current gender identity: male Do you feel safe at home: Yes
[2022-04-01 07:41] LABS: Hemoglobin A1C 7.3 % (<5.7)
[2022-04-01 07:56] VITALS: BP 120/74; PULSE 83; RESP 20; TEMP 36.6; O2SAT 96
[2022-04-01] MEDS: Insulin Aspart 300 UNITS/3 ML PEN SC ×2 (08:52→11:37)
[2022-04-01] MEDS: Acetaminophen 500 MG TAB 1000 MG PO ×2 (08:53→13:43)
[2022-04-01] MEDS: Nicotine 21 MG/24 HR PATCH TD (08:53)
[2022-04-01] MEDS: Pantoprazole 40 MG TABCR PO (08:54)
[2022-04-01] MEDS: Aspirin E.C. 81 MG TABEC PO (08:54)
[2022-04-01] MEDS: Lisinopril 10 MG TAB PO (08:54)
--- NOTE | 2022-04-01 09:37 | PT.INTREAT ---
Date of service: 04/01/22 Time of Service: 08:57 PT Notes Visit Reasons: R THR Inpatient Physical Therapy Treatment Note [facility] Date: 04/01/2022 PRECAUTIONS: Activity as tolerated, WBAT R SUBJECTIVE: Rosalio is pleasant and agreeable to participating in PT. He reports that he is having pain in his R knee, even at rest. He reports that he is being kicked out today. He is worried about contacting the person who is giving him a ride home, he is worried that she has already left for work. OBJECTIVE: Patient was issued bariatric FWW, which was adjusted to appropriate height. Patient signed [facility] form. PAIN: Patient c/o pain in R hip and R knee. He also reports a tightness pain in R lateral ankle with ther ex BED MOBILITY/TRANSFERS Supine-sit: I Sit-stand: I Stand-sit: I GAIT Assistive Device: FWW Weight bearing: WBAT R Assist: SBA Distance: 80' + 5' x2 Deviation: Slow pacing, standing rest x1, c/o R thigh, hip and knee pain THEREX: Patient was instructed in LE strengthening and stabilization program, completed in a long-sitting position, to include: ankle pumps, quad sets, glute sets, hip flexion and hip abduction. Issued LE strengthening and stabilization HEP. STAIRS: Up/down 3x4 and 2x6 using B rails and a step-to pattern with supervision, following instruction for sequence. ASSESSMENT: Patient tolerated session with complaint of R hip, knee and thigh pain, increasing with gait training and ther ex. He tolerates a progression in gait distance, although requires standing rest due to increased fatigue and pain. PLAN: Patient to discharge to home later today, per provider. Recommend follow up with HH PT vs OP PT. TREATMENT CODE/TIME: 34 minutes; [id number], [id number] (08:57)
[2022-04-01] MEDS: Normal Saline Flush 10 ML SYR IVP (10:11)
[2022-04-01 11:32] VITALS: BP 113/78; PULSE 78; RESP 17; TEMP 36.1; O2SAT 97
--- NOTE | 2022-04-01 17:29 | CMDISCH_ITS ---
- If Service Date Differs Date of service: 04/01/22 Time of Service: 17:29 LACE Index Scoring Tool - Questions: Length of Stay (in days): 2 Acuity (Admit via E.D.?): Yes Comorbidities: Chronic Pulmonary Disease E.D. Visits: 0 - Answers: Total Score: 7 Risk of Readmission: Low Risk Care Management Discharge Reason for Hospitalization: Hip replacement Discharge Plan: Rosalio returned home today with new orders for HH PT. His sister in law drove him home via private vehicle. He will follow up with his PCP and discharge plan of care. He is agreeable to his plan and has support in his community in [facility]. Patient/Family Education Needs: Review discharge instructions and limitations, discussion of self care needs including ask me three. Services Needed at Discharge: Home Health Care Services (HH PT)
== END 2022-04-01 15:46 | disposition home health service (06) | DRG 470 ==
LOC: PDS 12:15 → MS 18:08
PROVIDERS: Admitting Provider Student in an Organized Health Care Education/Training Program; PCP Family Medicine; Visit Provider Student in an Organized Health Care Education/Training Program
PROC: 0SRB04A Replacement of Left Hip Joint with Ceramic on Polyethylene Synthetic Substitute, Uncemented, Open Approach (ICD-10-PCS; CPT 27130; principal; 2022-03-30 15:30)
DX: M87.051 Idiopathic aseptic necrosis of right femur (principal); Z68.43 Body mass index [BMI] 50.0-59.9, adult; F10.10 Alcohol abuse, uncomplicated; I10 Essential (primary) hypertension; F32.9 Major depressive disorder, single episode, unspecified; E66.01 Morbid (severe) obesity due to excess calories; E11.9 Type 2 diabetes mellitus without complications; J44.9 Chronic obstructive pulmonary disease, unspecified; G89.29 Other chronic pain; G47.33 Obstructive sleep apnea (adult) (pediatric); I87.2 Venous insufficiency (chronic) (peripheral); E78.5 Hyperlipidemia, unspecified; M54.17 Radiculopathy, lumbosacral region; Z59.812 Housing instability, housed, homelessness in past 12 months
CPT/HCPCS: 27130; 20985; 36415; 80048; 85027; 87635; 97110; 97162; 97530; 73501; 83036; J0690; J1885; J2250; J2405

== ENCOUNTER 2022-04-12 14:47 | Outpatient (CLI) | payer MEDICARE, MEDICAID, SELFPAY ==
--- NOTE | 2022-04-12 12:45 | DI.RAD_ITS ---
Exam(s) XR HIP RT COMPLETE AP PELVIS EXAM: XR HIP RT COMPLETE AP PELVIS CLINICAL HISTORY: right JC. TECHNIQUE: 2D digital imaging was performed. COMPARISON: CR XR PELVIS AP from 02/15/2022 XA XR HIP RT IN OR from 03/30/2022 FINDINGS: 3 views Satisfactory position alignment of the components of the recently placed right hip prosthesis. No fr acture or loosening evident. IMPRESSION: DATA REPOSITORY: RADIATION DOSE DELIVERED:
== END 2022-04-12 14:48 | disposition home or self-care (01) ==
LOC: DIORS 14:49
PROVIDERS: PCP Family Medicine; Referring Provider Family Medicine; Visit Provider Physician Assistant
DX: Z96.641 Presence of right artificial hip joint (principal); Z47.1 Aftercare following joint replacement surgery
CPT/HCPCS: 73502

== ENCOUNTER → 2022-04-27 13:08 | Outpatient (BNVA) | payer MEDICARE, MEDICAID, SELFPAY | PROVIDERS: PCP Family Medicine; Referring Provider Family Medicine; Visit Provider Student in an Organized Health Care Education/Training Program | DX: Z47.1 Aftercare following joint replacement surgery (principal); Z96.641 Presence of right artificial hip joint ==

== ENCOUNTER → 2022-05-06 09:33 | Outpatient (BNVA) | payer MEDICARE, MEDICAID, SELFPAY | PROVIDERS: PCP Family Medicine; Referring Provider Family Medicine; Visit Provider Student in an Organized Health Care Education/Training Program | DX: Z47.1 Aftercare following joint replacement surgery (principal); Z96.641 Presence of right artificial hip joint; M70.61 Trochanteric bursitis, right hip; T81.89XA Other complications of procedures, not elsewhere classified, initial encounter | CPT/HCPCS: 20610; J1040 ==

== ENCOUNTER 2022-06-07 14:47 | Outpatient (CLI) | payer MEDICARE, MEDICAID, SELFPAY ==
--- NOTE | 2022-06-07 14:00 | DI.RAD_ITS ---
Exam(s) XR HIP RT AP LAT ONLY EXAM: XR HIP RT AP LAT ONLY CLINICAL HISTORY: eval R JC, pain. TECHNIQUE: 2D digital imaging was performed. Two images were obtained. AP and lateral views were ob tained. COMPARISON: CR XR HIP RT COMPLETE AP PELVIS from 04/12/2022 FINDINGS: BONES: There are stable post operative changes present. No fracture or dislocation. JOINTS: The orthopedic hardware is in good position. No evidence of hardware loosening. SOFT TISSUE: Normal. IMPRESSION: Stable postoperative changes. DATA REPOSITORY: RADIATION DOSE DELIVERED:
== END 2022-06-07 14:48 | disposition home or self-care (01) ==
LOC: DIORS 14:48
PROVIDERS: PCP Family Medicine; Referring Provider Family Medicine; Visit Provider Student in an Organized Health Care Education/Training Program
DX: Z96.641 Presence of right artificial hip joint (principal); Z47.1 Aftercare following joint replacement surgery; T81.89XA Other complications of procedures, not elsewhere classified, initial encounter; M70.61 Trochanteric bursitis, right hip
CPT/HCPCS: 73502